=== PATIENT | female | born 1975 | race Caucasian/White ===

== ENCOUNTER 2018-04-30 17:07 | Emergency (ER) | payer OTHER ==
[2018-04-30 17:16] VITALS: BP 143/84; PULSE 79; TEMP 98.8; BMI 27.4
[2018-04-30] MEDS ORDERED: DIPHTH,PERTUSS(ACELL),TET 0.5 ML DISP.SYRIN IM ONE (17:17)
--- NOTE | 2018-04-30 17:17 | PDOC ---
Rapid Medical Evaluation Chief Complaint: Injury Medical Evaluation: Allergies Allergy/AdvReac Type Severity Reaction Status Date / Time No Known Allergies Allergy Verified 04/30/18 17:13 04/30/18 17:14 I have performed a brief in-person evaluation of this patient. The patient presents with a chief complaint of: s/p fall sustaining injury to right knee. Reports tripping and falling hitting right knee and right side of head. Denies loc , or dizziness before fall. Pertinent physical exam findings are: no raised area noted on scalp right knee with laceration, swelling and pain with rom I have ordered the following: urine pt, xray of right knee and td The patient will proceed o the Ed for further evaluation.
--- NOTE | 2018-04-30 17:44 | PDOC ---
History of Present Illness - General Chief Complaint: Injury Stated Complaint: LACERATION Time Seen by Provider: 04/30/18 17:17 History Source: Patient Exam Limitations: No Limitations - History of Present Illness Initial Comments: 04/30/18 17:44 Pt is a 43 y/o F who tripped and fell on the sidewalk from standing this afternoon. Pt states she hit her head and blacked out for less than 30 seconds. She states she also scraped her R knee and her head hurts. Denies, fevers, chills, dizziness, lightheadedness, numbness and tingling to the extremities, and weakness. Past History - Travel Traveled outside of the country in the last 30 days: No Close contact w/someone who was outside of country & ill: No - Past Medical History Allergies/Adverse Reactions: Allergies Allergy/AdvReac Type Severity Reaction Status Date / Time No Known Allergies Allergy Verified 04/30/18 17:13 Home Medications: Ambulatory Orders Ibuprofen [Motrin -] 600 mg PO TID PRN 04/30/18 Topiramate [Topamax] 25 mg PO DAILY 04/30/18 COPD: No Other medical history: migraines - Immunization History Immunization Up to Date: Yes - Suicide/Smoking/Psychosocial Hx Smoking History: Never smoked Have you smoked in the past 12 months: No Hx Alcohol Use: No Drug/Substance Use Hx: No Review of Systems - Review of Systems Able to Perform ROS?: Yes Comments:: 04/30/18 17:45 CONSTITUTIONAL: Absent: fever, chills, diaphoresis, generalized weakness, malaise, loss of appetite HEENT: Absent: rhinorrhea, nasal congestion, throat pain, throat swelling, difficulty swallowing, mouth swelling, ear pain, eye pain, visual Changes CARDIOVASCULAR: Absent: chest pain, palpitations, irregular heart rate, peripheral edema RESPIRATORY: Absent: cough, shortness of breath, dyspnea with exertion, orthopnea, wheezing, stridor, hemoptysis GASTROINTESTINAL: Absent: abdominal pain, abdominal distension, nausea, vomiting, diarrhea, constipation, melena, hematochezia GENITOURINARY: Absent: dysuria, frequency, urgency, hesitancy, hematuria, flank pain, genital pain MUSCULOSKELETAL: Absent: myalgia, arthralgia, joint swelling SKIN: Present: abrasion to R knee Absent: rash, itching, pallor HEMATOLOGIC/IMMUNOLOGIC: Absent: easy bleeding, easy bruising, lymphadenopathy, frequent infections ENDOCRINE: Absent: unexplained weight gain, unexplained weight loss, heat intolerance, cold intolerance NEUROLOGIC: Present: LOC Absent: headache, focal weakness or paresthesias, dizziness, unsteady gait, seizure, mental status changes, bladder or bowel incontinence PSYCHIATRIC: Absent: anxiety, depression, suicidal or homicidal ideation, hallucinations. Is the patient limited Maldivian proficient: No *Physical Exam - Vital Signs Last Vital Signs Temp Pulse Resp BP Pulse Ox 98.8 F 79 18 143/84 98 04/30/18 17:14 04/30/18 17:14 04/30/18 17:14 04/30/18 17:14 04/30/18 17:14 - Physical Exam Comments: 04/30/18 17:45 GENERAL: Well developed, well nourished. Awake and alert. No acute distress. HEENT: Normocephalic, atraumatic. PERRLA, EOMI. No conjunctival pallor. Sclera are non- icteric. Moist mucous membranes. Oropharynx is clear. NECK: Supple. Full ROM. No JVD. Carotid pulses 2+ and symmetric, without bruits. No thyromegaly. No lymphadenopathy. CARDIOVASCULAR: Regular rate and rhythm. No murmurs, rubs, or gallops. Distal pulses are 2+ and symmetric. PULMONARY: No evidence of respiratory distress. Lungs clear to auscultation bilaterally. No wheezing, rales or rhonchi. ABDOMINAL: Soft. Non-tender. Non-distended. No rebound or guarding. No organomegaly. Normoactive bowel sounds. MUSCULOSKELETAL Normal range of motion at all joints. No bony deformities or tenderness. No CVA tenderness. EXTREMITIES: No cyanosis. No clubbing. No edema. No calf tenderness. SKIN: 3cm oval shaped abrasion to R knee. Warm and dry. Normal capillary refill. No rashes. No jaundice. NEUROLOGICAL: Alert, awake, appropriate. Cranial nerves 2-12 intact. No deficits to light touch and temperature in face, upper extremities and lower extremities. No motor deficits in the in face, upper extremities and lower extremities. Normoreflexic in the upper and lower extremities. Normal speech. Toes are down- going bilaterally. Gait is normal without ataxia. PSYCHIATRIC: Medical Decision Making - Medical Decision Making 04/30/18 17:39 Pt is a 43 y/o F who tripped and fell on the sidewalk from standing this afternoon. Pt states she hit her head and blacked out for less than 30 seconds. -Neurologically intact with no focal findings. No crepitus or hematoma to the skull. No arellano sign, raccoon sign, hemotympanum. -[place] head CT criteria: No need for CT at this time -Abrasion to R knee; cleaned and re-bandaged -Tetanus updated -X-ray is negative for fracture -DC home -I discussed the physical exam findings, ancillary test results and final diagnoses with the patient. I answered all of the patient's questions. The patient was satisfied with the care received and felt comfortable with the discharge plan and treatment plan. The Patient agrees to follow up with the primary care physician/specialist within 24-72 hours. Return precautions were given. *DC/Admit/Observation/Transfer Diagnosis at time of Disposition: Closed head injury with brief loss of consciousness, Abrasion - Discharge Dispostion Disposition: HOME Condition at time of disposition: Stable Decision to Admit order: No - Referrals Referrals: Simón Heath MD [Staff Physician] - - Patient Instructions Printed Discharge Instructions: DI for Closed Head Injury Additional Instructions: Jonathan multani. La radiografa de au rodilla es negativa por fractura. Por favor, cambie el vendaje sobre au raspado susie vez al da. Puedes ponerle un poco de bacitracina. Puede kristian Tylenol 650 mg segn lo necesite para aliviar el dolor cada 4 horas. No exceda los 4000 mg por da. Lamine un seguimiento con au mdico de atencin primaria esta semana. Regrese al departamento de emergencias si tiene mareos, aturdimiento, vmitos, somnolencia aumentada o si tiene algn cambio en denagelo sntomas. You fell today. Your knee x-ray is negative for fracture. Please change the dressing over your scrape once a day. You may put a little bacitracin on it. You may take Tylenol 650 mg as needed for pain every 4 hours. Do not exceed 4000 mg a day. Follow-up with her primary care doctor this week. Return to the emergency department if you have dizziness, lightheadedness, vomiting, increased sleepiness, or if you have any changes in your symptoms. - Post Discharge Activity
[2018-04-30] MEDS ORDERED: ACETAMINOPHEN 325 MG TABLET (FP) PO ONE (18:10)
[2018-04-30] MEDS ORDERED: ACETAMINOPHEN 325 MG TABLET (FP) ONE (18:11)
== END 2018-04-30 18:17 | disposition home or self-care (01) ==
LOC: JERFT 17:07
DX: S06.891A Other specified intracranial injury with loss of consciousness of 30 minutes or less, initial encounter (principal); S80.211A Abrasion, right knee, initial encounter; W18.39XA Other fall on same level, initial encounter; Y93.89 Activity, other specified; Y92.480 Sidewalk as the place of occurrence of the external cause; Y99.8 Other external cause status
CPT/HCPCS: 73562-TC-RT-FY; 90715; 99281-25

== ENCOUNTER 2018-11-15 17:05 | Emergency (ER) | payer OTHER | END 2018-11-15 19:30 | disposition left against medical advice (07) | LOC: JER 17:05 ==

== ENCOUNTER 2018-11-18 14:05 | Emergency (ER) | payer OTHER ==
[2018-11-18 14:13] VITALS: BP 114/71; PULSE 73; TEMP 98.6; BMI 29.5
--- NOTE | 2018-11-18 14:13 | PDOC ---
Rapid Medical Evaluation Time Seen by Provider: 11/18/18 14:11 Medical Evaluation: Allergies Allergy/AdvReac Type Severity Reaction Status Date / Time No Known Allergies Allergy Verified 11/15/18 17:09 11/18/18 14:11 Pt presents for 6 days of nausea, vomiting, dizziness and diarrhea Exam: abdomen SNTND Orders: Labs, urine, IV Pt to proceed to the ED for further evaluation Discharge Disposition - Diagnosis Vomiting Qualifiers: Vomiting type: unspecified - Referrals - Patient Instructions - Post Discharge Activity
[2018-11-18 14:39] LABS: BASO % 0.2 % (0-2.0); EOS % 0.3 % (0-4.5); HEMATOCRIT 40.6 % (32.4-45.2); HEMOGLOBIN 13.2 GM/dL (10.7-15.3); LYMPH % 28.6 % (8-40); MCH 26.2 pg (25.7-33.7); MCHC 32.5 g/dl (32.0-36.0); MEAN CELL VOLUME 80.5 fl (80-96); MEAN PLT VOLUME 8.5 fl (7.5-11.1); MONO % 6.3 % (3.8-10.2); NEUT % 64.6 % (42.8-82.8); PLATELET COUNT 223 K/MM3 (134-434); RBC 5.05 M/mm3 (3.60-5.2); RDW 15.3 % (11.6-15.6); WHITE BLOOD COUNT 6.1 K/mm3 (4.0-10.0)
[2018-11-18 14:53] LABS: URINE APPEARANCE CLEAR; URINE BILIRUBIN NEGATIVE (NEGATIVE); URINE COLOR YELLOW; URINE GLUCOSE (UA) NEGATIVE (NEGATIVE); URINE KETONE NEGATIVE (NEGATIVE); URINE LEUK ESTERASE NEGATIVE (NEGATIVE); URINE NITRITE NEGATIVE (NEGATIVE); URINE PROTEIN NEGATIVE (NEGATIVE); URINE UROBILINOGEN 0.2 mg/dL (0.2-1.0)
[2018-11-18 14:55] LABS: ALBUMIN 3.6 g/dl (3.4-5.0); ALK PHOS 59 U/L (45-117); ANION GAP 6 MMOL/L (8-16); BILIRUBIN,TOTAL 0.4 mg/dL (0.2-1); BLOOD UREA NITROGEN 7 mg/dL (7-18); CHLORIDE 103 mmol/L (98-107); CO2 26 mmol/L (21-32); CREATININE 0.6 mg/dL (0.55-1.3); GLUCOSE,RANDOM 79 mg/dL (74-106); SGOT/AST 22 U/L (15-37); SGPT/ALT 24 U/L (13-61); SODIUM 136 mmol/L (136-145); TOT PROT 7.3 g/dl (6.4-8.2)
--- NOTE | 2018-11-18 15:12 | PDOC ---
*Physical Exam - Vital Signs Last Vital Signs Temp Pulse Resp BP Pulse Ox 98.6 F 73 18 114/71 100 11/18/18 14:10 11/18/18 14:10 11/18/18 14:10 11/18/18 14:10 11/18/18 14:10 - Physical Exam Comments: 11/18/18 15:11 The patient was examined by [NAIMA Pickens] under my direct supervision. I personally evaluated the patient. I concur with the above findings and the plan of care. ED Treatment Course - LABORATORY CBC & Chemistry Diagram: 11/18/18 14:19 11/18/18 14:19 - ADDITIONAL ORDERS Additional order review: Laboratory Results 11/18/18 11/18/18 14:33 14:19 Sodium 136 Potassium 4.0 Chloride 103 Carbon Dioxide 26 Anion Gap 6 L BUN 7 Creatinine 0.6 Creat Clearance w eGFR 108.60 Random Glucose 79 Calcium 9.0 Total Bilirubin 0.4 AST 22 ALT 24 Alkaline Phosphatase 59 Total Protein 7.3 Albumin 3.6 Urine Color Yellow Urine Appearance Clear Urine pH 6.0 D Ur Specific [place] 1.007 L Urine Protein Negative Urine Glucose (UA) Negative Urine Ketones Negative Urine Blood Negative Urine Nitrite Negative Urine Bilirubin Negative Urine Urobilinogen 0.2 Ur Leukocyte Esterase Negative 11/18/18 14:19 RBC 5.05 MCV 80.5 MCHC 32.5 RDW 15.3 MPV 8.5 D Neutrophils % 64.6 Lymphocytes % 28.6 Monocytes % 6.3 Eosinophils % 0.3 Basophils % 0.2 *DC/Admit/Observation/Transfer Diagnosis at time of Disposition: Vomiting Qualifiers: Vomiting type: unspecified - Referrals - Patient Instructions - Post Discharge Activity
[2018-11-18 15:15] LABS: HCG,QUALITATIVE URINE Negative
--- NOTE | 2018-11-18 15:52 | PDOC ---
History of Present Illness - General Chief Complaint: Pain Stated Complaint: ADB PAIN/ VOMITING/ DIZZNESS Time Seen by Provider: 11/18/18 14:11 History Source: Patient - History of Present Illness Timing/Duration: reports: intermittent Past History - Past Medical History Allergies/Adverse Reactions: Allergies Allergy/AdvReac Type Severity Reaction Status Date / Time No Known Allergies Allergy Verified 11/18/18 14:13 Home Medications: Ambulatory Orders NK [No Known Home Medication] 11/15/18 COPD: No - Immunization History Immunization Up to Date: Yes - Suicide/Smoking/Psychosocial Hx Smoking History: Never smoked Have you smoked in the past 12 months: No Hx Alcohol Use: No Drug/Substance Use Hx: No Review of Systems - Review of Systems Constitutional: No: Chills, Fever ABD/GI: Yes: Diarrhea, Nausea, Vomiting, Abdominal cramping : No: Dysuria, Flank Pain, Hematuria *Physical Exam - Vital Signs Last Vital Signs Temp Pulse Resp BP Pulse Ox 98.6 F 73 18 114/71 100 11/18/18 14:10 11/18/18 14:10 11/18/18 14:10 11/18/18 14:10 11/18/18 14:10 - Physical Exam General Appearance: Yes: Appropriately Dressed. No: Apparent Distress HEENT: positive: Normal Voice Neck: positive: Supple Respiratory/Chest: negative: Respiratory Distress Gastrointestinal/Abdominal: positive: Soft. negative: Tender Musculoskeletal: negative: CVA Tenderness Integumentary: positive: Dry, Warm Neurologic: positive: Fully Oriented, Alert, Normal Mood/Affect ED Treatment Course - LABORATORY CBC & Chemistry Diagram: 11/18/18 14:19 11/18/18 14:19 - ADDITIONAL ORDERS Additional order review: Laboratory Results 11/18/18 11/18/18 14:33 14:19 Sodium 136 Potassium 4.0 Chloride 103 Carbon Dioxide 26 Anion Gap 6 L BUN 7 Creatinine 0.6 Creat Clearance w eGFR 108.60 Random Glucose 79 Calcium 9.0 Total Bilirubin 0.4 AST 22 ALT 24 Alkaline Phosphatase 59 Total Protein 7.3 Albumin 3.6 Urine Color Yellow Urine Appearance Clear Urine pH 6.0 D Ur Specific [place] 1.007 L Urine Protein Negative Urine Glucose (UA) Negative Urine Ketones Negative Urine Blood Negative Urine Nitrite Negative Urine Bilirubin Negative Urine Urobilinogen 0.2 Ur Leukocyte Esterase Negative Urine HCG, Qual Negative 11/18/18 14:19 RBC 5.05 MCV 80.5 MCHC 32.5 RDW 15.3 MPV 8.5 D Neutrophils % 64.6 Lymphocytes % 28.6 Monocytes % 6.3 Eosinophils % 0.3 Basophils % 0.2 Medical Decision Making - Medical Decision Making 11/18/18 16:10 43-year-old female, denies any past medical history, here with nausea, vomiting and diarrhea 1 week. Reports 2 episodes of non-bloody, non-bilious, vomitus and 2 episodes of non-bloody watery diarrhea. Also reports intermittent epigastric pain. No fever or chills. Denies recent travel or antibiotic use. Reports that her daughter has similar symptoms and is currently also a patient in the ER See exam Possibly gastroenteritis/gastritis, unlikely biliary, pancreatitis or appy Labs sent from triage neg Stable and well elham w/ benign abd -dc w/ supportive tx and pmd f/u as needed 11/18/18 16:13 Pt eloped without dc papers. IV was removed by myself *DC/Admit/Observation/Transfer Diagnosis at time of Disposition: Vomiting Qualifiers: Vomiting type: unspecified Vomiting Intractability: unspecified Nausea presence : unspecified Qualified Code(s): R11.10 - Vomiting, unspecified - Discharge Dispostion Disposition: HOME Condition at time of disposition: Good - Referrals - Patient Instructions Printed Discharge Instructions: DI for Viral Gastroenteritis -- Adult Additional Instructions: Drink plenty of fluids to stay hydrated and follow up with your PMD - Post Discharge Activity
== END 2018-11-18 16:04 | disposition home or self-care (01) ==
LOC: JER 14:05
DX: R11.10 Vomiting, unspecified (principal)
CPT/HCPCS: 36415; 80053; 81003; 84703; 85025; 87086; 99282-25

== ENCOUNTER 2019-08-09 18:23 | Emergency (ER) | payer OTHER ==
[2019-08-09 18:28] VITALS: BP 150/76; PULSE 70; TEMP 98.8; BMI 29.7
[2019-08-09] MEDS ORDERED: KETOROLAC TROMETHAMINE 60 MG/2 ML VIAL IM ONE (20:41)
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
[2019-08-09] MEDS ORDERED: KETOROLAC TROMETHAMINE 60 MG/2 ML VIAL ONE (20:56)
== END 2019-08-09 21:11 | disposition home or self-care (01) ==
LOC: JERFT 18:23
CPT/HCPCS: 99281-25

== ENCOUNTER 2019-08-10 15:10 | Emergency (ER) | payer OTHER ==
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
[2019-08-10 15:24] VITALS: BP 135/78; PULSE 71; TEMP 98; BMI 29.7
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
== END 2019-08-10 16:45 | disposition home or self-care (01) ==
LOC: JERFT 15:10
CPT/HCPCS: 99282-25

== ENCOUNTER 2020-10-06 04:32 | Inpatient (IN) | payer OTHER ==
[2020-10-04 13:19] VITALS: BMI 30.9
[2020-10-06] MEDS ORDERED: CEFAZOLIN 2 GM/D5W 2 GM/50 ML ML IVPB ONE (08:11)
[2020-10-06] MEDS ORDERED: ceFAZolin SODIUM 1 GM VIAL ONE (09:08)
[2020-10-06] MEDS ORDERED: BUPIVACAINE LIPOSOME/PF (EXPAREL) 266 MG/20 ML VIAL ONE (09:42)
[2020-10-06] MEDS ORDERED: MIDAZOLAM HCL 2 MG/2 ML SINGLE DOSE VIAL ONE ×2 (11:29)
[2020-10-06] MEDS ORDERED: PROPOFOL 20 ML ONE (11:51)
[2020-10-06] MEDS ORDERED: ROCURONIUM BROMIDE 100 MG/10 ML VIAL ONE (11:51)
[2020-10-06] MEDS ORDERED: SUCCINYLCHOLINE CHLORIDE 200 MG/10 ML SYRINGE ONE (11:51)
[2020-10-06] MEDS ORDERED: KETAMINE HCL 200 MG/20 ML VIAL ONE (12:10)
[2020-10-06] MEDS ORDERED: HYDROmorphone HCl 2 MG/ML VIAL ONE (12:11)
[2020-10-06] MEDS ORDERED: ceFAZolin SODIUM 1 GM VIAL IVPB ONE (12:13)
[2020-10-06] MEDS ORDERED: GLYCOPYRROLATE 0.2 MG/1 ML VIAL ONE ×2 (12:51→13:41)
[2020-10-06] MEDS ORDERED: NEOSTIGMINE METHYLSULFATE 0.5 MG/ML - 10 ML MDV ONE (12:52)
[2020-10-06] MEDS ORDERED: BENZOIN/ALOE VERA/STORAX/TOLU 58 ML BOTTLE ONE (13:38)
[2020-10-06] MEDS ORDERED: ONDANSETRON 4 MG/2 ML VIAL IVPUSH PRN (14:12)
[2020-10-06] MEDS ORDERED: PROMETHAZINE HCL 25 MG/1 ML VIAL IVPB PRN (14:12)
[2020-10-06] MEDS ORDERED: HYDROmorphone *PCA* 10MG/50ML DISP.SYRIN ONE (14:30)
[2020-10-06] MEDS: HYDROmorphone *PCA* 10MG/50ML DISP.SYRIN PCA SCH ×2 (14:38→17:45)
[2020-10-06] MEDS: LACTATED RINGERS SOLUTION 1,000 ML IV SCH (16:10)
[2020-10-07] MEDS: LACTATED RINGERS SOLUTION 1,000 ML IV SCH ×4 (00:58→22:20)
[2020-10-07 12:48] LABS: BASO % 0.1 % (0-2.0); EOS % 0.1 % (0-4.5); HEMATOCRIT 26.7 % (32.4-45.2); HEMOGLOBIN 8.8 GM/dL (10.7-15.3); LYMPH % 21.4 % (8-40); MCH 25.6 pg (25.7-33.7); MCHC 32.8 g/dl (32.0-36.0); MEAN CELL VOLUME 78.1 fl (80-96); MEAN PLT VOLUME 9.9 fl (7.5-11.1); MONO % 9.2 % (3.8-10.2); NEUT % 69.2 % (42.8-82.8); PLATELET COUNT 153 K/MM3 (134-434); RBC 3.41 M/mm3 (3.60-5.2); RDW 19.2 % (11.6-15.6); WHITE BLOOD COUNT 8.8 K/mm3 (4.0-10.0)
[2020-10-07] MEDS ORDERED: PCA PUMP NR ONE (14:19)
[2020-10-07] MEDS: oxyCODONE HCL 5 MG TABLET PO PRN ×3 (14:30→20:35)
[2020-10-07] MEDS: IBUPROFEN 600 MG TABLET (FP) PO PRN (15:57)
[2020-10-07] MEDS: ACETAMINOPHEN 325 MG TABLET (FP) PO PRN (20:34)
[2020-10-08] MEDS: oxyCODONE HCL 5 MG TABLET PO PRN ×4 (00:17→17:45)
[2020-10-08] MEDS: LACTATED RINGERS SOLUTION 1,000 ML IV SCH ×2 (06:42→17:06)
[2020-10-08] MEDS: ACETAMINOPHEN 325 MG TABLET (FP) PO PRN ×2 (11:26→17:46)
[2020-10-08] MEDS: IBUPROFEN 600 MG TABLET (FP) PO PRN (13:05)
[2020-10-09] MEDS: LACTATED RINGERS SOLUTION 1,000 ML IV SCH ×2 (01:42→09:51)
[2020-10-09] MEDS: oxyCODONE HCL 5 MG TABLET PO PRN ×3 (01:46→13:22)
[2020-10-09] MEDS: IBUPROFEN 600 MG TABLET (FP) PO PRN (08:44)
[2020-10-09] MEDS: ACETAMINOPHEN 325 MG TABLET (FP) PO PRN (10:00)
[2020-10-09 13:34] VITALS: BP 114/76; PULSE 95; TEMP 98
== END 2020-10-09 13:43 | disposition home or self-care (01) | DRG 513 ==
LOC: J2C 04:32 → J5S 16:54
PROVIDERS: ADMIT Obstetrics & Gynecology; ATTEND Obstetrics & Gynecology
PROC: 0UT70ZZ Resection of Bilateral Fallopian Tubes, Open Approach (ICD-10-PCS; 2020-10-06)
PROC: 0UT90ZZ Resection of Uterus, Open Approach (ICD-10-PCS; principal; 2020-10-06 10:00)
DX: N93.8 Other specified abnormal uterine and vaginal bleeding (principal); D25.9 Leiomyoma of uterus, unspecified
CPT/HCPCS: 36415; 85025; 88307-TC; 94760

== ENCOUNTER 2021-09-21 07:31 | Day surgery (SDC) | payer OTHER ==
[2021-09-20 12:41] VITALS: BMI 31.8
[2021-09-21] MEDS ORDERED: ONDANSETRON 4 MG/2 ML VIAL ONE ×2 (08:38→09:44)
[2021-09-21] MEDS ORDERED: ACETAMINOPHEN INJECTION 100 ML IVPB ONE (08:38)
[2021-09-21] MEDS ORDERED: MIDAZOLAM HCL 2 MG/2 ML SINGLE DOSE VIAL ONE (09:10)
[2021-09-21] MEDS ORDERED: ROPIVACAINE HCL/PF 100 MG/20 ML VIAL ONE (09:10)
[2021-09-21] MEDS ORDERED: BUPIVACAINE HCL/EPINEPHRINE/PF 30 ML VIAL IJ ONE (09:36)
[2021-09-21] MEDS ORDERED: ceFAZolin SODIUM 1 GM VIAL ONE (09:44)
[2021-09-21] MEDS ORDERED: DEXAMETHASONE SOD PHOSPHATE 4 MG/1 ML VIAL ONE (09:44)
[2021-09-21] MEDS ORDERED: LIDOCAINE HCL 2% JELLY (5 ML/TUBE) ONE (09:44)
[2021-09-21] MEDS ORDERED: KETOROLAC TROMETHAMINE 30 MG/1 ML VIAL ONE (09:44)
[2021-09-21] MEDS ORDERED: LIDOCAINE HCL/PF 2% SDV 5ML VIAL ONE (09:44)
[2021-09-21] MEDS ORDERED: ePHEDrine SULFATE 50 MG/1 ML AMPULE ONE (10:19)
[2021-09-21] MEDS ORDERED: oxyCODONE HCL 5 MG TABLET PO PRN ×2 (11:18)
[2021-09-21] MEDS ORDERED: PROMETHAZINE HCL 25 MG/1 ML VIAL IVPUSH PRN (11:18)
[2021-09-21] MEDS ORDERED: ACETAMINOPHEN 325 MG TABLET (FP) PO PRN (11:18)
[2021-09-21] MEDS ORDERED: ONDANSETRON 4 MG/2 ML VIAL IVPUSH PRN (11:18)
[2021-09-21 11:35] VITALS: TEMP 97
[2021-09-21 14:33] VITALS: BP 117/77; PULSE 78
== END 2021-09-21 14:00 | disposition home or self-care (01) ==
LOC: FASU 07:31
PROVIDERS: ATTEND Orthopaedic Surgery
PROC: 0RNJ4ZZ Release Right Shoulder Joint, Percutaneous Endoscopic Approach (ICD-10-PCS; 2021-09-21)
PROC: 0RBJ4ZZ Excision of Right Shoulder Joint, Percutaneous Endoscopic Approach (ICD-10-PCS; 2021-09-21)
PROC: 0LS30ZZ Reposition Right Upper Arm Tendon, Open Approach (ICD-10-PCS; 2021-09-21)
PROC: 0PB94ZZ Excision of Right Clavicle, Percutaneous Endoscopic Approach (ICD-10-PCS; principal; 2021-09-21 10:03)
DX: M75.111 Incomplete rotator cuff tear or rupture of right shoulder, not specified as traumatic (principal); M67.813 Other specified disorders of tendon, right shoulder; M65.811 Other synovitis and tenosynovitis, right shoulder; M75.01 Adhesive capsulitis of right shoulder; M19.011 Primary osteoarthritis, right shoulder; S43.431A Superior glenoid labrum lesion of right shoulder, initial encounter; X58.XXXA Exposure to other specified factors, initial encounter; Y93.9 Activity, unspecified; Y92.9 Unspecified place or not applicable
CPT/HCPCS: 84703; 88304-TC; 94760; J0131

== ENCOUNTER 2022-03-07 21:51 | Emergency (ER) | payer OTHER ==
[2022-03-07 22:13] VITALS: BP 117/74; PULSE 103; TEMP 98.6; BMI 36.1
[2022-03-08] MEDS ORDERED: ACETAMINOPHEN 1000 MG/100 ML BAG IVPB ONE (00:39)
[2022-03-08] MEDS ORDERED: ONDANSETRON 4 MG/2 ML VIAL IVPUSH ONE (00:39)
[2022-03-08] MEDS ORDERED: LACTATED RINGERS SOLUTION 1000 ML INFUS.BAG IV ONE (00:39)
[2022-03-08] MEDS ORDERED: ONDANSETRON 4 MG/2 ML VIAL ONE (00:46)
[2022-03-08 01:10] LABS: PH,URINE 5.5 (5.0-8.0); URINE APPEARANCE CLEAR; URINE BILIRUBIN NEGATIVE (NEGATIVE); URINE COLOR YELLOW; URINE GLUCOSE (UA) NEGATIVE (NEGATIVE); URINE KETONE 1+ (NEGATIVE); URINE LEUK ESTERASE NEGATIVE (NEGATIVE); URINE NITRITE NEGATIVE (NEGATIVE); URINE PROTEIN TRACE (NEGATIVE); URINE UROBILINOGEN 0.2 mg/dL (0.2-1.0)
[2022-03-08 01:11] LABS: BASO % 0.1 % (0-2.0); EOS % 0.2 % (0-4.5); HEMATOCRIT 43.2 % (32.4-45.2); LYMPH % 8.5 % (8-40); MCH 25.8 pg (25.7-33.7); MCHC 32.5 g/dl (32.0-36.0); MEAN CELL VOLUME 79.5 fl (80-96); MEAN PLT VOLUME 8.6 fl (7.5-11.1); MONO % 2.9 % (3.8-10.2); NEUT % 88.3 % (42.8-82.8); PLATELET COUNT 244 10^3/uL (134-434); RBC 5.43 M/mm3 (3.60-5.2); RDW 15.8 % (11.6-15.6); WHITE BLOOD COUNT 9.2 K/mm3 (4.0-10.0)
[2022-03-08 01:30] LABS: CALCIUM 9.6 mg/dL (8.5-10.1)
[2022-03-08 01:31] LABS: ALBUMIN 4.3 g/dl (3.4-5.0); BLOOD UREA NITROGEN 14.2 mg/dL (7-18)
[2022-03-08 01:34] LABS: CREATININE 0.8 mg/dL (0.55-1.3)
[2022-03-08 01:35] LABS: TOT PROT 8.5 g/dl (6.4-8.2)
[2022-03-08 01:36] LABS: BILIRUBIN,TOTAL 0.3 mg/dL (0.2-1)
[2022-03-08] MEDS ORDERED: SUCRALFATE 1 GM TABLET (FP) PO ONE (01:45)
[2022-03-08] MEDS ORDERED: FAMOTIDINE 20 MG/50 ML IVPB 20 MG/50 ML MG IVPB ONE ×2 (01:45→01:51)
[2022-03-08] MEDS ORDERED: MAG HYDROX/AL HYDROX/SIMETH 30 ML UNIT-DOSE CUP PO ONE (01:45)
[2022-03-08] MEDS ORDERED: SUCRALFATE 1 GM TABLET (FP) ONE (01:50)
[2022-03-08] MEDS ORDERED: MAG HYDROX/AL HYDROX/SIMETH 30 ML UNIT-DOSE CUP ONE (01:50)
[2022-03-08 02:16] LABS: INR 1.09 (0.83-1.09); PROTHROMBIN TIME (PATIENT) 12.5 SEC (9.7-13.0)
[2022-03-08 02:18] LABS: ACTIVATED PTT 29.2 SECONDS (25.2-36.5)
== END 2022-03-08 03:24 | disposition home or self-care (01) ==
LOC: JER 21:51
PROC: 3E033GC Introduction of Other Therapeutic Substance into Peripheral Vein, Percutaneous Approach (ICD-10-PCS; principal; 2022-03-07)
DX: R11.2 Nausea with vomiting, unspecified (principal)
CPT/HCPCS: 36415; 76705-TC; 80053; 81003; 83690; 85025; 85610; 85730; 86850; 86900; 86901; 99284-25